=== PATIENT | male | born 1995 | race Caucasian/White ===

== ENCOUNTER 2020-09-30 18:13 | Emergency (ER) | payer OTHER ==
[~2020-09-30] VITALS: Ht 185.4 cm; Wt 136.1 kg
[2020-10-01] MEDS ORDERED: BUTALB-ASPIRIN1 EACH PO (00:28)
== END 2020-10-01 00:53 | disposition home or self-care (01) ==
LOC: ER 18:13
DX: R51.9 Headache, unspecified (principal); Z03.818 Encounter for observation for suspected exposure to other biological agents ruled out